=== PATIENT | male | born 1955 | race Caucasian/White ===

== ENCOUNTER 2018-08-19 18:02 | Emergency (ER) | payer BC ==
[2018-08-19] MEDS ORDERED: Ketorolac 30 MG/ML SDV IM ONE (18:28)
[2018-08-19] MEDS ORDERED: Tamsulosin 0.4 MG Cap.ER PO ONE (19:13)
[2018-08-19] MEDS ORDERED: Sodium Chloride 0.9% 10 ML Syringe FLUSH PRN (19:14)
[2018-08-19] MEDS ORDERED: Sodium Chloride 0.9% 1,000 ML IV SCH (19:15)
--- NOTE | 2018-08-19 19:26 | EDM.PDOC ---
ED HPI GENERAL MEDICAL PROBLEM - General Chief Complaint: Genitourinary Problem Stated Complaint: POSSIBLE KIDNEY STONE Time Seen by Provider: 08/19/18 19:10 Source of Information: Reports: Patient, RN Notes Reviewed History Limitations: Reports: No Limitations - History of Present Illness INITIAL COMMENTS - FREE TEXT/NARRATIVE: Patient is a 63-year-old male who presents to the ED for the evaluation of a possible kidney stone. He notes that he has had kidney stones in the past, this would be the third episode that he has had with kidney stones. He notes that the pain started roughly at 2 PM today and has been steady to the left flank area. He did try some Tylenol to help provide him some relief but this does not help much. He states that his last kidney stone was roughly 3 years ago. He notes the pain to be sharp stabbing in nature that kind of comes and goes in waves. He would rate the pain at a 7 out of 10. He states that he does have urinary frequency and urgency, but states he cannot urinate much at all. He states the first kidney stone they had to retrieve, and the second kidney stone passed by itself. He is from [place], and did see a urologist in [place] for his kidney stones prior. Treatments DIVERSITY MANAGER: Reports: Other (see below) Other Treatments DIVERSITY MANAGER: tylenol Left Abdomen Pain Score (Numeric/FACES): 10 - Related Data Allergies Allergy/AdvReac Type Severity Reaction Status Date / Time No Known Allergies Allergy Verified 08/19/18 18:19 Home Meds: Home Meds Cholecalciferol (Vitamin D3) [Vitamin D3] 1,000 unit PO DAILY 08/19/18 [History] Cyanocobalamin (Vitamin B12) [Vitamin B12] 1 tab PO DAILY 08/19/18 [History] Multivitamin [Multivitamins] 1 cap PO DAILY 08/19/18 [History] Past Medical History Genitourinary History: Reports: Renal Calculus Social & Family History - Tobacco Use Smoking Status *Q: Never Smoker - Caffeine Use Caffeine Use: Reports: Coffee - Recreational Drug Use Recreational Drug Use: No ED ROS GENERAL - Review of Systems Review Of Systems: See Below Constitutional: Denies: Fever, Chills HEENT: Reports: No Symptoms Respiratory: Reports: No Symptoms Cardiovascular: Reports: No Symptoms Endocrine: Reports: No Symptoms GI/Abdominal: Denies: Constipation, Diarrhea, Nausea, Vomiting : Reports: Flank Pain (L flank) Musculoskeletal: Reports: No Symptoms Skin: Reports: No Symptoms Neurological: Reports: No Symptoms Psychiatric: Reports: No Symptoms Hematologic/Lymphatic: Reports: No Symptoms Immunologic: Reports: No Symptoms ED EXAM, RENAL/ - Physical Exam Exam: See Below Exam Limited By: No Limitations General Appearance: Alert, WD/WN, No Apparent Distress Eye Exam: Bilateral Eye: Normal Inspection Ears: Normal External Exam Nose: Normal Inspection Throat/Mouth: Normal Inspection, Normal Lips, Normal Teeth, Normal Gums, Normal Oropharynx, Normal Voice, No Airway Compromise Head: Atraumatic, Normocephalic Neck: Normal Inspection Respiratory/Chest: No Respiratory Distress, Lungs Clear, Normal Breath Sounds, No Accessory Muscle Use, Chest Non-Tender Cardiovascular: Normal Peripheral Pulses, Regular Rate, Rhythm, No Murmur GI/Abdominal: Normal Bowel Sounds, Soft, Non-Tender, No Distention, No Mass Extremities: Normal Inspection, Normal Capillary Refill Neurological: Alert, Oriented, Normal Cognition, No Motor/Sensory Deficits Psychiatric: Normal Affect, Normal Mood Skin Exam: Warm, Dry, Intact, Normal Color, No Rash Course - Vital Signs Last Recorded V/S: Last Vital Signs Temp 98.8 F 08/19/18 18:18 Pulse 90 08/19/18 18:18 Resp 20 08/19/18 18:18 BP 181/82 H 08/19/18 18:18 Pulse Ox 96 08/19/18 18:18 - Orders/Labs/Meds Orders: Active Orders 24 hr Category Date Time Status Peripheral IV Care [RC] . DIRECTED Care 08/19/18 19:14 Ordered Strain Urine [RC] ASDIRECTED Care 08/19/18 19:19 Ordered HYDROmorphone [Dilaudid] Med 08/19/18 20:21 Once 0.5 mg IVPUSH ONETIME ONE Sodium Chloride 0.9% [Normal Saline] 1,000 ml Med 08/19/18 19:15 Ordered IV ASDIRECTED Sodium Chloride 0.9% [Saline Flush] Med 08/19/18 19:14 Ordered 10 ml FLUSH ASDIRECTED PRN Peripheral IV Insertion Adult [OM.PC] Routine Oth 08/19/18 19:14 Ordered Medication Orders Sodium Chloride (Normal Saline) 1,000 mls @ 999 mls/hr IV ASDIRECTED [facility] Last Admin: 08/19/18 19:24 Dose: 999 mls/hr Sodium Chloride (Saline Flush) 10 ml FLUSH ASDIRECTED PRN PRN Reason: Keep Vein Open Last Admin: 08/19/18 19:27 Dose: 10 ml Labs: Laboratory Tests 08/19/18 Range/Units 18:30 Urine Color Yellow (Yellow) Urine Appearance Clear (Clear) Urine pH 5.5 (5.0-8.0) Ur Specific [place] > or = 1.030 (1.005-1.030) Urine Protein 1+ H (Negative) Urine Glucose (UA) Negative (Negative) Urine Ketones 2+ H (Negative) Urine Occult Blood 3+ H (Negative) Urine Nitrite Negative (Negative) Urine Bilirubin Negative (Negative) Urine Urobilinogen 0.2 (0.2-1.0) Ur Leukocyte Esterase Negative (Negative) Urine RBC 10-20 H (0-5) /hpf Urine WBC 0-5 (0-5) /hpf Ur Squamous Epith Cells 0-5 (0-5) /hpf Urine Bacteria Rare (FEW) /hpf Urine Mucus Not seen (FEW) /hpf Urine Yeast (Budding) Moderate H (NOT SEEN) Meds: Medications Generic Name Dose Route Start Last Admin Trade Name Freq PRN Reason Stop Dose Admin Sodium Chloride 1,000 mls @ 999 mls/hr 08/19/18 19:15 08/19/18 19:24 Normal Saline IV 999 mls/hr ASDIRECTED ZION Administration Sodium Chloride 10 ml 08/19/18 19:14 08/19/18 19:27 Saline Flush FLUSH 10 ml ASDIRECTED PRN Administration Keep Vein Open Discontinued Medications Generic Name Dose Route Start Last Admin Trade Name Freq PRN Reason Stop Dose Admin Ketorolac Tromethamine 30 mg 08/19/18 18:28 08/19/18 18:38 Toradol IM 08/19/18 18:29 30 mg ONETIME ONE Administration Tamsulosin HCl 0.4 mg 08/19/18 19:13 08/19/18 19:24 Flomax PO 08/19/18 19:14 0.4 mg ONETIME ONE Administration - Re-Assessments/Exams Free Text/Narrative Re-Assessment/Exam: 08/19/18 19:25 Patient presents to the ED for the evaluation of a possible kidney stone. I did order an abdomen and pelvis CT without contrast, 30 mg IM Toradol, IV fluids , 0.4 mg PO Flomax and will have the gentleman strain his urine. 08/19/18 19:[address] is done, and demonstrates 1. a small 2-2-1/2 mm stone within the distal left ureter causing proximal hydronephrosis which is 3-5 cm from the UVJ. 2. 7 mm nonobstructing stone within the lower left kidney. 3. Other incidental findings. 08/19/18 20:21 RN informs me that the patient's pain has returned. I have ordered 0.5 mg IV Dilaudid, he does have a ride to take him back to his hotel room today. In discussion with him about further pain medications. The patient states that he does have hydrocodone and oxycodone at his hotel for chronic back pain. And he will take his pain medications that he has and is not requesting any more from me today other than the Dilaudid at the ER visit. This is fine with me. The patient will be discharged after his IV fluids are done. He will be directed to return to the ER if his symptoms should change or worsen. Departure - Departure Time of Disposition: 20:22 Disposition: Home, Self-Care 01 Condition: Fair Clinical Impression: Kidney stone on left side - Discharge Information *PRESCRIPTION DRUG MONITORING PROGRAM REVIEWED*: No *COPY OF PRESCRIPTION DRUG MONITORING REPORT IN PATIENT MARCUS: No Instructions: Kidney Stones, [id number] Forms: ED Department Discharge Additional Instructions: You have been evaluated in the ED today for your kidney stones. You have been given IV pain medications and IV fluids to help relief the symptoms due to the kidney stone. Your CT did demonstrate a 2-2-1/2 mm stone within the distal left ureter, which is about 3-5 cm above the bladder inlet. There was also a 7 mm nonobstructing stone within the lower left kidney. If however you should develop urinary retention that would be cause for concern to return to the ER for further management as you might need to have the 7 mm stone retrieved. The smaller stone near the bladder SHOULD pass by itself with no problem. Please increase your oral fluid intake, and take your chronic pain medications, hydrocodone or oxycodone as needed for further pain relief. Please strain your urine to make sure that you pass the stone. Please return to the ED if your symptoms should change or worsen. - My Orders Last 24 Hours: My Active Orders 08/19/18 19:14 Peripheral IV Care [RC] . DIRECTED Sodium Chloride 0.9% [Saline Flush] 10 ml FLUSH ASDIRECTED PRN Peripheral IV Insertion Adult [OM.PC] Routine 08/19/18 19:15 Sodium Chloride 0.9% [Normal Saline] 1,000 ml IV ASDIRECTED 08/19/18 19:19 Strain Urine [RC] ASDIRECTED 08/19/18 20:21 HYDROmorphone [Dilaudid] 0.5 mg IVPUSH ONETIME ONE - Assessment/Plan Last 24 Hours: My Active Orders 08/19/18 19:14 Peripheral IV Care [RC] . DIRECTED Sodium Chloride 0.9% [Saline Flush] 10 ml FLUSH ASDIRECTED PRN Peripheral IV Insertion Adult [OM.PC] Routine 08/19/18 19:15 Sodium Chloride 0.9% [Normal Saline] 1,000 ml IV ASDIRECTED 08/19/18 19:19 Strain Urine [RC] ASDIRECTED 08/19/18 20:21 HYDROmorphone [Dilaudid] 0.5 mg IVPUSH ONETIME ONE
--- NOTE | 2018-08-19 19:30 | CT ---
CT abdomen and pelvis Technique: Multiple axial sections were obtained from above the dome of the diaphragm inferiorly through the pubic symphysis. Intravenous and oral contrast was not utilized. Study has been performed as a ureteral stone protocol. Findings: Left ureter is mildly prominent. This finding is due to an distal obstructing ureteral stone measuring about 2-2.5 mm in size. This stone is located about 3-5 cm from the UVJ. No other abnormal calcifications are seen along the course of the ureters. Nonobstructing stone is noted within the lower left kidney measuring 7 mm. Left kidney is slightly swollen which is felt to relate to the obstructing ureteral stone. Visualized lung bases shows minimal dependent atelectasis within both posterior lung bases. Noncontrast appearance of the liver and spleen appears within normal limits. Gallbladder contains no calcified gallstones. No adrenal nodules are seen. Pancreas is within normal limits. Aorta shows no aneurysm with mild atherosclerotic calcification. No retroperitoneal adenopathy is seen. No mesenteric abnormalities are seen. Appendix felt to be visualized and is normal in size. No pelvic mass or adenopathy is seen. Small fat-containing left inguinal hernia is noted. Minimal sigmoid diverticulosis is seen. No free fluid is seen. Bone window settings were reviewed which shows mild scattered degenerative change within the spine which is most severe at L5-S1 with vacuum phenomena. Impression: 1. Small 2-2.5 mm stone within the distal left ureter causing proximal hydronephrosis. As mentioned above, this occurs 3-5 cm from the UVJ. 2. 7 mm nonobstructing stone within the lower left kidney. 3. Other incidental findings as noted above. Diagnostic code #3
[2018-08-19] MEDS ORDERED: HYDROmorphone 0.5 MG/0.5 ML Syringe IVPUSH ONE (20:21)
== END 2018-08-19 20:51 | disposition home or self-care (01) ==
LOC: JD.ED 18:02 → SUPCPDRO 18:02 → JD.ED 20:51
DX: N13.2 Hydronephrosis with renal and ureteral calculous obstruction (principal)
CPT/HCPCS: 74176; 81001; 96361; 96372; 96374; 99284; A9270; J1170; J1885; J7040